=== PATIENT | female | born 1945 | race African-American/Black ===

== ENCOUNTER 2018-06-25 17:58 | Inpatient (IN) | payer MEDICARE, OTHER ==
[2018-06-25] MEDS ORDERED: Haloperidol Lactate 5 mg/mL 1mL Vial IM STA (18:30)
[2018-06-25] MEDS ORDERED: Haloperidol Lactate 5 mg/mL 1mL Vial ONE (18:40)
--- NOTE | 2018-06-25 19:33 | ED Physician Chart ---
ED Chief Complaint/HPI - Patient Information Date Seen:: 06/25/18 Time Seen:: 18:30 Chief Complaint:: Hallucinations History of Present Illness:: onset x 3 days of hallucinations; no report of trauma, H/As, SIs, neck pain, C/P , SOB, Abd. Pain, or urinary s/s Allergies:: Allergies Allergy/AdvReac Type Severity Reaction Status Date / Time No Known Allergies Allergy Verified 06/25/18 18:30 Vitals:: Vital Signs - 8 hr 06/25/18 06/25/18 18:30 19:00 Temp 98.5 F 98.4 F HR 72 76 RR 16 16 BP 157/87 120/54 O2 Sat % 100 100 Historian:: Patient, EMS Review:: Nurse's Note Reviewed, Old Chart Reviewed, EMS run form Reviewed ED Review of Systems - Review of Systems General/Constitutional: No fever, No chills, No weight loss, No weakness, No diaphoresis, No edema, No loss of appetite Skin: No skin lesions, No rash, No bruising Head: No headache, No light-headedness Eyes: No loss of vision, No pain, No diplopia ENT: No earache, No nasal drainage, No sore throat, No tinnitus Neck: No neck pain, No swelling, No thyromegaly, No stiffness, No mass noted Cardio Vascular: No chest pain, No palpitations, No PND, No orthopnea, No edema Pulmonary: No SOB, No cough, No sputum, No wheezing GI: No nausea, No vomiting, No diarrhea, No pain, No melena, No hematochezia, No constipation, No hematemesis G/U: No dysuria, No frequency, No hematuria, No nacturia Ways Operator: No vaginal discharge, No abnormal vaginal bleed, No contraction Musculoskeletal: No bone or joint pain, No back pain, No muscle pain Endocrine: No polyuria, No polydipsia Psychiatric: Prior psych history, No depression, Anxiety, No suicidal ideation, No homicidal ideation, Auditory hallucination, Visual hallucination Hematopoietic: No bruising, No lymphadenopathy Allergic/Immuno: No urticaria, No angioedema Neurological: No syncope, No focal symptoms, No weakness, No paresthesia, No headache, No seizure, No dizziness, No confusion, No vertigo ED Past Medical History - Past Medical History Obtainable: Yes Past Medical History: HTN, DVT/PE, Dyslipidemia Family History: HTN Social History: Non Smoker, No Alcohol, No Drug Use, Single, Care Facility Surgical History: None Psychiatricy History: Schizophrenia, Bipolar Medication: Reviewed Family Medical History - Family Member Mother History Unknown: Yes ED Physical Exam - Physical Examination General/Constitutional: Awake, Well-developed, well-nourished, Alert, No distress, GCS 15, Non-toxic appearing, Ambulatory Head: Atraumatic Eyes: Lids, conjuctiva normal, PERRL, EOMI Skin: Nl inspection, No rash, No skin lesions, No ecchymosis, Well hydrated, No lymphadenopathy ENMT: External ears, nose nl, TM canals nl, Nasal exam nl, Lips, teeth, gums nl , Oropharynx nl, Tonsils nl Neck: Nontender, Full ROM w/o pain, No JVD, No nuchal rigidity, No bruit, No mass, No stridor Respiratory: Nl effort/Exclusion, Clear to Auscultation, No Wheeze/Rhonchi/Rales Cardio Vascular: RRR, No murmur, gallop, rubs, NL S1 S2, Carotid/Femoral/Distal pulses equal bilaterally GI: No tenderness/rebounding/guarding, No organomegaly, No hernia, Normal BS's, Nondistended, No mass/bruits, No McBurney tenderness : No CVA tenderness Extremities: No tenderness or effusion, Full ROM, normal strength in all extremities, No edema, Normal digits & nails Neuro/Psych: Alert/oriented, DTR's symmetric, Normal sensory exam, Normal motor strength, Judgement/insight normal, Mood normal, Normal gait, No focal deficits Other Neuro/Psych comments:: + Hallucinations; no SIs; Mood/Affect: Labile Misc: Normal back, No paraspinal tenderness ED Labs/Radiology/EKG Results - Lab Results Comments:: Reviewed - EKG Interpretations EKG Time:: 19:31 Rate & Rhythm: 66; NSR Comments:: non-specific st-t changes ED Septic Shock - . Is Septic Shock (SBP<90, OR Lactate>4 mmol\L) present?: No - <6hrs of presentation: Vital Signs: Vital Signs - 8 hr 06/25/18 06/25/18 18:30 19:00 Temp 98.5 F 98.4 F HR 72 76 RR 16 16 BP 157/87 120/54 O2 Sat % 100 100 ED Reassessment (Disposition) - Reassessment Reassessment Condition:: Improved - Diagnosis Diagnosis:: Hallucinations; Medical Clearance; Psychosis; Schizophrenia; Bipolar Disorder
[2018-06-25 19:46] LABS: HEMATOCRIT 35.7 % (41.0-60); HEMOGLOBIN 11.8 gm/dL (12-16); MEAN CELL VOLUME 82.3 fl (81-100); MEAN CORPUSCULAR HEMOGLOBIN 27.1 pg (27.0-31.0); MEAN PLATELET VOLUME 7.9 fl; PLATELET COUNT 166 Th/cmm (150-400); RED BLOOD COUNT 4.34 Mil/cmm (3.80-5.20); RED CELL DISTRIBUTION WIDTH 13.5 % (11.5-20.0)
[2018-06-25 19:48] LABS: WHITE BLOOD COUNT 3.1 Th/cmm (4.8-10.8)
[2018-06-25 19:51] LABS: ACETAMINOPHEN < 10.0 ug/mL (10.0-30.0); ALB/GLOB RATIO 1.6 (1.0-1.8); ALBUMIN 4.5 gm/dL (3.7-5.3); ALKALINE PHOSPHATASE 40 U/L (34-104); ANION GAP 15.4 (7.0-16.0); BILIRUBIN,TOTAL 0.4 mg/dL (0.3-1.0); BUN - UREA NITROGEN 41 mg/dL (7-25); CALCIUM SERUM 9.9 mg/dL (8.6-10.3); CARBON DIOXIDE 22.8 mEq/L (21.0-31.0); CHLORIDE 106 mEq/L (98-107); CHOLESTEROL 205 mg/dL (<200); CREATININE - SERUM 1.1 mg/dL (0.6-1.2); GLUCOSE 114 mg/dL (70-105); HDL -HIGH DENSITY LIPOPROTEIN 98 mg/dL (23-92); POTASSIUM SERUM 4.2 mEq/L (3.5-5.1); SGOT 17 U/L (13-39); SGPT/ALT 11 U/L (7-52); SODIUM SERUM 140 mEq/L (136-145); TOTAL PROTEIN,SERUM 7.3 gm/dL (6.0-8.3); TRIGLYCERIDES 42 mg/dL (<150)
[2018-06-25 19:53] LABS: SALICYLATES (ASPIRIN) < 25.0 mg/L (30.0-100.0)
[2018-06-25 20:20] LABS: NEUTROPHILS 58 % (40-80)
[2018-06-25 20:21] LABS: LYMPHOCYTE 34 % (20-50); MONOCYTE 8 % (2-10)
[2018-06-25 21:57] VITALS: BP 120/54
[2018-06-25] MEDS ORDERED: Magnesium Hydroxide (MOM) 30 mL UDC PO PRN (22:08)
[2018-06-25] MEDS ORDERED: Non-Formulary Item 1 EA (Melatonin [Melatonin] 3 MG) PO PRN (22:08)
[2018-06-25 22:26] LABS: CHOLESTEROL 209 mg/dL (<200); HDL -HIGH DENSITY LIPOPROTEIN 101 mg/dL (23-92); TRIGLYCERIDES 41 mg/dL (<150)
--- NOTE | 2018-06-26 12:51 | History & Physical ---
ADMIT DATE: 06/26/2018 CHIEF COMPLAINT: Agitated behavior. HISTORY OF PRESENT ILLNESS: This is a 73-year-old -Y[place]i female with history of hypertension, psych disorder, dementia, admitted from nursing facility secondary to above complaint, under the service of Dr. Roy. The patient denies chest pain, shortness of breath. The patient is a poor historian. PAST MEDICAL HISTORY: As mentioned in the history of present illness. PAST SURGICAL HISTORY: Right knee replacement. ALLERGIES: No known drug allergies. MEDICATIONS: Tylenol, Eliquis, atenolol, bisacodyl, lisinopril, magnesium, melatonin, and olanzapine. FAMILY HISTORY: Noncontributory. SOCIAL HISTORY: The patient lives in snf. The patient requiring 24-hour total care apparently. REVIEW OF SYSTEMS: History of DVT. We will try to get information from the patient's Son [phone]. There is a brother Andrea Guzman, . We will also try to get information from rehab at . PHYSICAL EXAMINATION: VITAL SIGNS: Blood pressure 151/70, respirations 18, pulse 76, temperature 97.8. GENERAL: Elderly female, appears stated age, chronically ill. NECK: Supple. No mass. LUNGS: Equal breath sounds, few rhonchi. HEART: Regular rate and rhythm. Systolic ejection murmur. ABDOMEN: Soft, globular. EXTREMITIES: Positive excoriation, atrophy, contractures. LABORATORY DATA: WBC 3.1, hemoglobin 11, platelets 166. Sodium 140, potassium 4.2, BUN 41, creatinine 1.1, blood sugar 114. Troponin 0.01. Cholesterol 219. TSH 1.9. ASSESSMENT AND PLAN: Anemia, leukopenia, renal insufficiency, elevated cholesterol, gait instability, hypertension, psych disorder, dementia, history of deep venous thrombosis. Continue oxygen and bronchodilator treatment. Continue on anticoagulation. Continue calcium channel titus. We will monitor renal function closely. Psychiatry to manage the patient for psych issues. We will continue to follow closely. JOB# [id number]
--- NOTE | 2018-06-27 12:12 | Internal Medicine Prog Note ---
Internal Medicine Subjective - Subjective Patient seen and examined:: with staff, chart reviewed Patient is:: awake, verbal, interactive, in bed Per staff patient has:: no adverse event, no episodes of fall, poor appetite, tolerating meds Internal Medicine Objective - Results Result Diagrams: 06/25/18 19:15 06/25/18 19:15 Recent Labs: Laboratory Last Values WBC 3.1 Th/cmm (4.8-10.8) L 06/25/18 19:15 RBC 4.34 Mil/cmm (3.80-5.20) 06/25/18 19:15 Hgb 11.8 gm/dL (12-16) L 06/25/18 19:15 Hct 35.7 % (41.0-60) L 06/25/18 19:15 MCV 82.3 fl (81-100) 06/25/18 19:15 MCH 27.1 pg (27.0-31.0) 06/25/18 19:15 MCHC Differential 33.0 pg (28.0-36.0) 06/25/18 19:15 RDW 13.5 % (11.5-20.0) 06/25/18 19:15 Plt Count 166 Th/cmm (150-400) 06/25/18 19:15 MPV 7.9 fl 06/25/18 19:15 Add Manual Diff YES 06/25/18 19:15 Neutrophils (Manual) 58 % (40-80) 06/25/18 19:15 Lymphocytes 34 % (20-50) 06/25/18 19:15 Monocytes 8 % (2-10) 06/25/18 19:15 Sodium 140 mEq/L (136-145) 06/25/18 19:15 Potassium 4.2 mEq/L (3.5-5.1) 06/25/18 19:15 Chloride 106 mEq/L (98-107) 06/25/18 19:15 Carbon Dioxide 22.8 mEq/L (21.0-31.0) 06/25/18 19:15 Anion Gap 15.4 (7.0-16.0) 06/25/18 19:15 BUN 41 mg/dL (7-25) H 06/25/18 19:15 Creatinine 1.1 mg/dL (0.6-1.2) 06/25/18 19:15 Est GFR ( Amer) TNP 06/25/18 19:15 Est GFR (Non-Af Amer) TNP 06/25/18 19:15 BUN/Creatinine Ratio 37.3 06/25/18 19:15 Glucose 114 mg/dL (70-105) H 06/25/18 19:15 Whole Bld Lactic Acid 1.15 mmol/L (0.60-1.99) 06/25/18 19:15 Calcium 9.9 mg/dL (8.6-10.3) 06/25/18 19:15 Total Bilirubin 0.4 mg/dL (0.3-1.0) 06/25/18 19:15 AST 17 U/L (13-39) 06/25/18 19:15 ALT 11 U/L (7-52) 06/25/18 19:15 Alkaline Phosphatase 40 U/L (34-104) 06/25/18 19:15 Troponin I < 0.01 ng/mL (0.01-0.05) L 06/25/18 19:15 Total Protein 7.3 gm/dL (6.0-8.3) 06/25/18 19:15 Albumin 4.5 gm/dL (3.7-5.3) 06/25/18 19:15 Globulin 2.8 gm/dL 06/25/18 19:15 Albumin/Globulin Ratio 1.6 (1.0-1.8) 06/25/18 19:15 Triglycerides 41 mg/dL (<150) 06/25/18 19:15 Cholesterol 209 mg/dL (<200) H 06/25/18 19:15 LDL Cholesterol Direct 80 mg/dL (75-193) 06/25/18 19:15 HDL Cholesterol 101 mg/dL (23-92) H 06/25/18 19:15 TSH 1.98 uIU/ml (0.34-5.60) 06/25/18 19:15 Salicylates < 25.0 mg/L (30.0-100.0) L 06/25/18 19:15 Acetaminophen < 10.0 ug/mL (10.0-30.0) L 06/25/18 19:15 Ethyl Alcohol < 10 mg/dL (0-10) 06/25/18 19:15 - Physical Exam Vitals and I&O: Vital Signs Temp 97.7 F 06/27/18 05:44 Pulse 62 06/27/18 08:44 Resp 18 06/27/18 05:44 BP 134/64 06/27/18 08:44 Pulse Ox 100 06/27/18 05:44 Intake & Output 06/26/18 06/27/18 06/27/18 18:59 06:59 18:59 Intake Total 1400 120 Balance 1400 120 Intake: Oral 1400 120 Other: # Voids 4 2 # Bowel Movements 1 0 Active Medications: Current Medications Acetaminophen (Tylenol) 650 mg PO Q6H PRN PRN Reason: Pain (Mild) Stop: 08/24/18 22:48 Atenolol (Tenormin) 50 mg PO DAILY SRIKANTH Stop: 08/25/18 08:59 Last Admin: 06/27/18 08:43 Dose: 50 mg Bisacodyl (Dulcolax 10 Mg Supp) 10 mg RC DAILY PRN PRN Reason: Constipation Stop: 08/24/18 22:07 Lisinopril (Zestril) 40 mg PO DAILY SRIKANTH Stop: 08/25/18 08:59 Last Admin: 06/27/18 08:44 Dose: 40 mg Lorazepam (Ativan) 0.5 mg PO Q6HR PRN; Protocol PRN Reason: Agitation Stop: 08/24/18 23:02 Magnesium Hydroxide (Milk Of Magnesia) 30 ml PO DAILY PRN PRN Reason: Constipation Stop: 08/24/18 22:07 Miscellaneous (Misc Oral Tab) 2 tab PO BID SRIKANTH Stop: 08/25/18 08:59 Last Admin: 06/27/18 08:43 Dose: 2 tab Olanzapine (Zyprexa) 2.5 mg PO HS SRIKANTH; Protocol Stop: 08/25/18 20:59 Last Admin: 06/26/18 21:13 Dose: 2.5 mg Zolpidem Tartrate (Ambien) 5 mg PO HS PRN PRN Reason: Insomnia Stop: 08/24/18 23:05 General: demented, bilateral temporal wasting HEENT: NC/AT, PERRLA, EOMI Neck: Supple, No JVD Lungs: CTAB Cardiovascular: RRR, Normal S1, Normal S2, with murmur Abdomen: soft, non-tender, positive bowel sound Extremities: excoriation, contracture Neurological: no change Internal Medicine Assmt/Plan - Assessment Assessment: ASSESSMENT AND PLAN: Anemia, leukopenia, renal insufficiency, elevated cholesterol, gait instability, hypertension, psych disorder, dementia, history of deep venous thrombosis. - Plan Plan: APLAN: Continue oxygen and bronchodilator treatment. Continue on anticoagulation. Continue calcium channel titus. We will monitor renal function closely. Psychiatry to manage the patient for psych issues. We will continue to follow closely.
--- NOTE | 2018-06-27 12:43 | Psychiatric Evaluation ---
DATE OF SERVICE: 06/26/2018 IDENTIFYING DATA: The patient is a 73-year-old -Serbian woman, resident of a [facility] facility i.e., [facility]. Information obtained by directly interviewing the patient as well as reviewing the admission papers. JUSTIFICATION FOR HOSPITALIZATION: The patient is admitted for her acute psychosis and agitation. CHIEF COMPLAINT: "They are tricking me and they are trying to get me out of my house." HISTORY OF PRESENT ILLNESS: This is a first psychiatric hospitalization to [facility] for this patient who is reported to have multiple medical problems such as hypertension, generalized muscle weakness, rhabdomyolysis, history of metabolic encephalopathy, anemia, and chronic kidney disease. The patient is reporting that she is supposed to go back to her place because her place is in ____ and they have gotten her to [facility]. From there, she has been promised that she is going to be going back to her house, but now she is sent over here. The patient is very agitated and is demanding that I should be discharging her back to her home. PAST PSYCHIATRIC HISTORY: Details are not known. MEDICAL HISTORY: Physical examination is requested to be done by Dr. Jaime. SUBSTANCE ABUSE HISTORY: None. PHYSICAL OR SEXUAL ABUSE HISTORY: None. LEGAL PROBLEMS: None at this time. STRENGTH AND ASSETS: The patient is motivated. MENTAL STATUS EXAMINATION: The patient is a 73-year-old thin built, superficially cooperative. Eye contact is poor. Mood is noted to be irritable. Affect is constricted. Insight and judgment are very much impaired. Impulse control is poor. The patient is getting easily agitated. The patient is stating that she should be discharged back to her place and she should not be in here. Coping skills are noted to be extremely poor at this time. The patient has both short-term as well as long-term memory deficits. The patient is not able to contract for safety at this time. DIAGNOSTIC IMPRESSION: AXIS I: A. Psychotic disorder, not otherwise specified. B. 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 AXIS II: None. AXIS III: As per Dr. Jaime. IMMEDIATE TREATMENT PLAN: The patient is going to be observed on inpatient unit, provided with supportive psychotherapy. The patient is going to be continued on the Zyprexa. ANTICIPATED LENGTH OF STAY: 3-5 days. DISCHARGE CRITERIA: When she no longer a threat to self or others and be able to cope up with the stress. JOB# [id number]
--- NOTE | 2018-06-28 03:25 | Progress Notes ---
DATE: 06/27/2018 SUBJECTIVE: Staff was spoken to. The patient is interviewed. Mood is noted to be irritable. Affect is constricted. Insight and judgment are noted to be still impaired. Impulse control is noted to be limited. Coping skills are noted to be limited. The patient has been having difficult time to cope with the stress. No side effects to the medications are noted. The patient, however, has been angry and upset and states that she is going to be seeing the facility for tricking her and then bringing her over here. The patient continues to be paranoid. The patient has been currently on 2.5 mg of Zyprexa and would like to continue that one and follow the patient with the supportive therapy. [facility]# [id number]
--- NOTE | 2018-06-28 05:19 | Consultation ---
DATE OF CONSULTATION: 06/27/2018 REFERRING PHYSICIAN: Jamey Brink MD TYPE OF CONSULTATION: Psychology. HISTORY OF PRESENT ILLNESS: The patient is a 73-year-old -[place] female. The patient is a resident of [facility]. The following is by review of the medical record and by the patient's self-report. The patient is being admitted to the geropsychiatric unit for psychosis and agitation. Upon interview, the patient reports that she believes that people are trying to trick her to get her out of her home. The patient denied any suicidal ideation, plan, or intention. The staff at the patient's facility reports that she has become easily agitated and demanding as well as perseverating on discharge to return to her home. During the clinical interview, the patient continued to request to be taken home and that everyone had promised her that she would be going back to her house. PAST MEDICAL HISTORY: Please see history and physical by Dr. Jaime. PAST PSYCHIATRIC HISTORY: Records are unavailable. Details are unknown. SUBSTANCE ABUSE HISTORY: The patient denied any history of alcohol, tobacco, or illicit drug use. PSYCHOSOCIAL HISTORY: The patient did not answer questions about occupational or educational history. The patient states that she has no children, but she has a family member named Zander who is involved in her care. The patient states no quaker affiliation. The patient did not answer questions about any history of physical or sexual abuse or current legal problems. The patient is demanding to be returned to her home. The patient is a poor historian. MENTAL STATUS EXAMINATION: The patient appears to be her stated age; however, she is frail. Attitude is superficially cooperative. Eye contact is poor. Speech is delayed and intermittently loud then soft. The patient's mood is irritable. Affect is constricted. Thought process shows to be confused. There is some evidence of possible paranoid ideation. The patient denied any auditory or visual hallucinations. The patient denied any suicidal ideation, plan, or intention. The patient's behavior is easily agitated according to the staff. Impulse control is inadequate. Concentration is poor. The patient did not participate in the memory assessment. Sensorium is alert and oriented to self only. The patient did not participate in the interpretation of proverbs. Insight is poor. Judgment is compromised. DIAGNOSTIC IMPRESSION: AXIS I: 1. Psychotic disorder, not otherwise specified. 2. Dementia with behavioral disturbance. AXIS II: Deferred. AXIS III: Per Dr. Jaime. TREATMENT PLAN: The patient has been seen by Dr. Brink for psychiatric evaluation and for the management of the patient's psychotropic medications. We will provide supportive psychotherapy to include reality orientation, differentiation, and integration. We will provide de-escalation as well as stress management for the patient to increase her frustration tolerance and to be able to follow through with staff direction. We will provide motivational enhancement for the patient to become compliant and to stay compliant with all aspects of her care and treatment. We will provide coping strategies for phase of life issues. We will continue to provide supportive psychotherapy throughout the patient's hospital stay. We will encourage the patient to demonstrate emotional and self-regulation and to verbally contract for safety prior to her discharge. Thank you, Dr. Brink, for this consult and the opportunity to participate in this patient's care. JOB# [id number] MTDD
--- NOTE | 2018-06-28 14:33 | Internal Medicine Prog Note ---
Internal Medicine Subjective - Subjective Service Date: 06/28/18 Patient is:: awake, verbal, interactive, in bed Per staff patient has:: no adverse event, no episodes of fall, poor appetite, tolerating meds Internal Medicine Objective - Results Result Diagrams: 06/25/18 19:15 06/25/18 19:15 Recent Labs: Laboratory Last Values WBC 3.1 Th/cmm (4.8-10.8) L 06/25/18 19:15 RBC 4.34 Mil/cmm (3.80-5.20) 06/25/18 19:15 Hgb 11.8 gm/dL (12-16) L 06/25/18 19:15 Hct 35.7 % (41.0-60) L 06/25/18 19:15 MCV 82.3 fl (81-100) 06/25/18 19:15 MCH 27.1 pg (27.0-31.0) 06/25/18 19:15 MCHC Differential 33.0 pg (28.0-36.0) 06/25/18 19:15 RDW 13.5 % (11.5-20.0) 06/25/18 19:15 Plt Count 166 Th/cmm (150-400) 06/25/18 19:15 MPV 7.9 fl 06/25/18 19:15 Add Manual Diff YES 06/25/18 19:15 Neutrophils (Manual) 58 % (40-80) 06/25/18 19:15 Lymphocytes 34 % (20-50) 06/25/18 19:15 Monocytes 8 % (2-10) 06/25/18 19:15 Sodium 140 mEq/L (136-145) 06/25/18 19:15 Potassium 4.2 mEq/L (3.5-5.1) 06/25/18 19:15 Chloride 106 mEq/L (98-107) 06/25/18 19:15 Carbon Dioxide 22.8 mEq/L (21.0-31.0) 06/25/18 19:15 Anion Gap 15.4 (7.0-16.0) 06/25/18 19:15 BUN 41 mg/dL (7-25) H 06/25/18 19:15 Creatinine 1.1 mg/dL (0.6-1.2) 06/25/18 19:15 Est GFR ( Amer) TNP 06/25/18 19:15 Est GFR (Non-Af Amer) TNP 06/25/18 19:15 BUN/Creatinine Ratio 37.3 06/25/18 19:15 Glucose 114 mg/dL (70-105) H 06/25/18 19:15 Whole Bld Lactic Acid 1.15 mmol/L (0.60-1.99) 06/25/18 19:15 Calcium 9.9 mg/dL (8.6-10.3) 06/25/18 19:15 Total Bilirubin 0.4 mg/dL (0.3-1.0) 06/25/18 19:15 AST 17 U/L (13-39) 06/25/18 19:15 ALT 11 U/L (7-52) 06/25/18 19:15 Alkaline Phosphatase 40 U/L (34-104) 06/25/18 19:15 Troponin I < 0.01 ng/mL (0.01-0.05) L 06/25/18 19:15 Total Protein 7.3 gm/dL (6.0-8.3) 06/25/18 19:15 Albumin 4.5 gm/dL (3.7-5.3) 06/25/18 19:15 Globulin 2.8 gm/dL 06/25/18 19:15 Albumin/Globulin Ratio 1.6 (1.0-1.8) 06/25/18 19:15 Triglycerides 41 mg/dL (<150) 06/25/18 19:15 Cholesterol 209 mg/dL (<200) H 06/25/18 19:15 LDL Cholesterol Direct 80 mg/dL (75-193) 06/25/18 19:15 HDL Cholesterol 101 mg/dL (23-92) H 06/25/18 19:15 TSH 1.98 uIU/ml (0.34-5.60) 06/25/18 19:15 Salicylates < 25.0 mg/L (30.0-100.0) L 06/25/18 19:15 Acetaminophen < 10.0 ug/mL (10.0-30.0) L 06/25/18 19:15 Ethyl Alcohol < 10 mg/dL (0-10) 06/25/18 19:15 RPR NONREACTIVE (NONREACTIVE) 06/25/18 19:15 - Physical Exam Vitals and I&O: Vital Signs Temp 97.9 F 06/28/18 14:00 Pulse 69 06/28/18 14:00 Resp 20 06/28/18 14:00 BP 124/76 06/28/18 14:00 Pulse Ox 96 06/28/18 14:00 Intake & Output 06/27/18 06/28/18 06/28/18 18:59 06:59 18:59 Intake Total 1000 240 Balance 1000 240 Intake: Oral 1000 240 Other: # Voids 4 2 # Bowel Movements 1 0 Active Medications: Current Medications Acetaminophen (Tylenol) 650 mg PO Q6H PRN PRN Reason: Pain (Mild) Stop: 08/24/18 22:48 Atenolol (Tenormin) 50 mg PO DAILY SRIKANTH Stop: 08/25/18 08:59 Last Admin: 06/28/18 09:02 Dose: 50 mg Bisacodyl (Dulcolax 10 Mg Supp) 10 mg RC DAILY PRN PRN Reason: Constipation Stop: 08/24/18 22:07 Lisinopril (Zestril) 40 mg PO DAILY SRIKANTH Stop: 08/25/18 08:59 Last Admin: 06/28/18 09:01 Dose: 40 mg Lorazepam (Ativan) 0.5 mg PO Q6HR PRN; Protocol PRN Reason: Agitation Stop: 08/24/18 23:02 Magnesium Hydroxide (Milk Of Magnesia) 30 ml PO DAILY PRN PRN Reason: Constipation Stop: 08/24/18 22:07 Miscellaneous (Misc Oral Tab) 2 tab PO BID SRIKANTH Stop: 08/25/18 08:59 Last Admin: 06/28/18 09:01 Dose: 2 tab Olanzapine (Zyprexa) 2.5 mg PO HS SRIKANTH; Protocol Stop: 08/25/18 20:59 Last Admin: 06/27/18 21:02 Dose: 2.5 mg Zolpidem Tartrate (Ambien) 5 mg PO HS PRN PRN Reason: Insomnia Stop: 08/24/18 23:05 General: demented, bilateral temporal wasting HEENT: NC/AT, PERRLA, EOMI Neck: Supple, No JVD Lungs: CTAB Cardiovascular: RRR, Normal S1, Normal S2, with murmur Abdomen: soft, non-tender, positive bowel sound Extremities: excoriation, contracture Neurological: no change Internal Medicine Assmt/Plan - Assessment Assessment: ASSESSMENT AND PLAN: Anemia, leukopenia, renal insufficiency, elevated cholesterol, gait instability, hypertension, psych disorder, dementia, history of deep venous thrombosis. - Plan Plan: Continue oxygen and bronchodilator treatment. Continue on anticoagulation. Continue calcium channel titus. We will monitor renal function closely. Psychiatry to manage the patient for psych issues. We will continue to follow closely. Nutritional Asmnt/Malnutr-PDOC - Dietary Evaluation Malnutrition Findings (Please click <Entered> for more info): Nutritional Asmnt/Malnutrition Start: 06/28/18 09: 40 Text: Status: Active Freq: Protocol: Document 06/28/18 09:40 MMDONY (Rec: 06/28/18 09:46 MMULNELSON BRANDON- [email or web address]) Nutritional Asmnt/Malnutrition Patient General Information Nutritional Screening Moderate Risk Diagnosis Psychosis, bipolar disorder Pertinent Medical Hx/Surgical Hx Hypertension, psych disorder, dementia Subjective Information Patient was admitted from nursing facility. Current Diet Order/ Nutrition Support Mechanical soft Patient / S.O Not Indicated Pertinent Medications dulcolax, MOM Pertinent Labs (06/25) cholesterol 209 Nutritional Hx/Data Height 5 ft 2 in Height (Calculated Centimeters) 157.5 Current Weight (lbs) 132 lb Weight (Calculated Kilograms) 59.9 Weight (Calculated Grams) 63980.2 [place] Body Weight 110 % [place] Body Weight 120 Body Mass Index (BMI) 24.1 Recent Weight Change No Weight Status Approriate GI Symptoms GI Symptoms None Last BM 06/27 x 1 Difficult in: None Food Allergies No Cultural/Ethnic/Protestant Belief none indicated Usual diet at home unknown Skin Integrity/Comment: [place] 17, intact, dryness Current %PO Good (75-100%) Estimated Nutritional Goals BEE in Kcals: Using Current wt Calories/Kcals/Kg 25-30 kcal/kg using CBW 60kg Kcals Calculated 8184-4466 kcal/day Protein: Using Current wt Protein g/kgm/kg Protein Calculated ~60gm/day Fluid: ml 7544-4599 ml/day Nutritional Problem 1. Problem Problem No nutrition diagnosis at this time Intervention/Recommendation Comments 1. Continue mechanical soft diet as tolerated by patient. Expected Outcomes/Goals Expected Outcomes/Goals Oral intake >75% of meals, weight stable, nutrition related labs WNl F/U LR 07/05
--- NOTE | 2018-06-28 19:08 | Progress Notes ---
DATE: 06/28/2018 PSYCHIATRIC PROGRESS NOTE SUBJECTIVE: Staff was spoken to. The patient is interviewed. Mood is noted to be irritable. Affect is constricted. The patient's coping skills at this time are noted to be very poor insight and judgment also noted to be very much impaired. The patient has been insisting that there is a conspiracy going on for keeping her in the hospital. The patient has no insight into her illness. ASSESSMENT: The patient is still grossly psychotic. PLAN: To continue the patient with the supportive therapy, I encouraged the patient to verbalize the concerns rather than to act out. JOB# [id number]
--- NOTE | 2018-06-29 13:15 | Internal Medicine Prog Note ---
Internal Medicine Subjective - Subjective Service Date: 06/29/18 Patient is:: awake, verbal, interactive, in bed Per staff patient has:: no adverse event, no episodes of fall, poor appetite, tolerating meds Internal Medicine Objective - Results Result Diagrams: 06/25/18 19:15 06/25/18 19:15 Recent Labs: Laboratory Last Values WBC 3.1 Th/cmm (4.8-10.8) L 06/25/18 19:15 RBC 4.34 Mil/cmm (3.80-5.20) 06/25/18 19:15 Hgb 11.8 gm/dL (12-16) L 06/25/18 19:15 Hct 35.7 % (41.0-60) L 06/25/18 19:15 MCV 82.3 fl (81-100) 06/25/18 19:15 MCH 27.1 pg (27.0-31.0) 06/25/18 19:15 MCHC Differential 33.0 pg (28.0-36.0) 06/25/18 19:15 RDW 13.5 % (11.5-20.0) 06/25/18 19:15 Plt Count 166 Th/cmm (150-400) 06/25/18 19:15 MPV 7.9 fl 06/25/18 19:15 Add Manual Diff YES 06/25/18 19:15 Neutrophils (Manual) 58 % (40-80) 06/25/18 19:15 Lymphocytes 34 % (20-50) 06/25/18 19:15 Monocytes 8 % (2-10) 06/25/18 19:15 Sodium 140 mEq/L (136-145) 06/25/18 19:15 Potassium 4.2 mEq/L (3.5-5.1) 06/25/18 19:15 Chloride 106 mEq/L (98-107) 06/25/18 19:15 Carbon Dioxide 22.8 mEq/L (21.0-31.0) 06/25/18 19:15 Anion Gap 15.4 (7.0-16.0) 06/25/18 19:15 BUN 41 mg/dL (7-25) H 06/25/18 19:15 Creatinine 1.1 mg/dL (0.6-1.2) 06/25/18 19:15 Est GFR ( Amer) TNP 06/25/18 19:15 Est GFR (Non-Af Amer) TNP 06/25/18 19:15 BUN/Creatinine Ratio 37.3 06/25/18 19:15 Glucose 114 mg/dL (70-105) H 06/25/18 19:15 Whole Bld Lactic Acid 1.15 mmol/L (0.60-1.99) 06/25/18 19:15 Calcium 9.9 mg/dL (8.6-10.3) 06/25/18 19:15 Total Bilirubin 0.4 mg/dL (0.3-1.0) 06/25/18 19:15 AST 17 U/L (13-39) 06/25/18 19:15 ALT 11 U/L (7-52) 06/25/18 19:15 Alkaline Phosphatase 40 U/L (34-104) 06/25/18 19:15 Troponin I < 0.01 ng/mL (0.01-0.05) L 06/25/18 19:15 Total Protein 7.3 gm/dL (6.0-8.3) 06/25/18 19:15 Albumin 4.5 gm/dL (3.7-5.3) 06/25/18 19:15 Globulin 2.8 gm/dL 06/25/18 19:15 Albumin/Globulin Ratio 1.6 (1.0-1.8) 06/25/18 19:15 Triglycerides 41 mg/dL (<150) 06/25/18 19:15 Cholesterol 209 mg/dL (<200) H 06/25/18 19:15 LDL Cholesterol Direct 80 mg/dL (75-193) 06/25/18 19:15 HDL Cholesterol 101 mg/dL (23-92) H 06/25/18 19:15 TSH 1.98 uIU/ml (0.34-5.60) 06/25/18 19:15 Salicylates < 25.0 mg/L (30.0-100.0) L 06/25/18 19:15 Acetaminophen < 10.0 ug/mL (10.0-30.0) L 06/25/18 19:15 Ethyl Alcohol < 10 mg/dL (0-10) 06/25/18 19:15 RPR NONREACTIVE (NONREACTIVE) 06/25/18 19:15 - Physical Exam Vitals and I&O: Vital Signs Temp 98.1 F 06/29/18 06:18 Pulse 62 06/29/18 08:15 Resp 20 06/29/18 06:18 BP 140/58 06/29/18 08:15 Pulse Ox 97 06/29/18 06:18 Intake & Output 06/28/18 06/29/18 06/29/18 18:59 06:59 18:59 Intake Total 1200 480 Output Total 1 Balance 1200 479 Intake: Oral 1200 480 Output: Urine/Stool Mix 1 Other: # Voids 1 # Bowel Movements 1 Active Medications: Current Medications Acetaminophen (Tylenol) 650 mg PO Q6H PRN PRN Reason: Pain (Mild) Stop: 08/24/18 22:48 Atenolol (Tenormin) 50 mg PO DAILY [facility]KANTH Stop: 08/25/18 08:59 Last Admin: 06/29/18 08:15 Dose: 50 mg Bisacodyl (Dulcolax 10 Mg Supp) 10 mg RC DAILY PRN PRN Reason: Constipation Stop: 08/24/18 22:07 Lisinopril (Zestril) 40 mg PO DAILY [facility] Stop: 08/25/18 08:59 Last Admin: 06/29/18 08:15 Dose: 40 mg Lorazepam (Ativan) 0.5 mg PO Q6HR PRN; Protocol PRN Reason: Agitation Stop: 08/24/18 23:02 Magnesium Hydroxide (Milk Of Magnesia) 30 ml PO DAILY PRN PRN Reason: Constipation Stop: 08/24/18 22:07 Miscellaneous (Misc Oral Tab) 2 tab PO BID [facility]AN[facility] Stop: 08/25/18 08:59 Last Admin: 06/29/18 08:16 Dose: 2 tab Olanzapine (Zyprexa) 2.5 mg PO HS SRIKANTH; Protocol Stop: 08/25/18 20:59 Last Admin: 06/28/18 20:20 Dose: 2.5 mg Zolpidem Tartrate (Ambien) 5 mg PO HS PRN PRN Reason: Insomnia Stop: 08/24/18 23:05 General: demented, bilateral temporal wasting HEENT: NC/AT, PERRLA, EOMI Neck: Supple, No JVD Lungs: CTAB Cardiovascular: RRR, Normal S1, Normal S2, with murmur Abdomen: soft, non-tender, positive bowel sound Extremities: excoriation, contracture Neurological: no change Internal Medicine Assmt/Plan - Assessment Assessment: ASSESSMENT AND PLAN: Anemia, leukopenia, renal insufficiency, elevated cholesterol, gait instability, hypertension, psych disorder, dementia, history of deep venous thrombosis. - Plan Plan: Continue oxygen and bronchodilator treatment. Continue on anticoagulation. Continue calcium channel titus. We will monitor renal function closely. Psychiatry to manage the patient for psych issues. We will continue to follow closely. Nutritional Asmnt/Malnutr-PDOC - Dietary Evaluation Malnutrition Findings (Please click <Entered> for more info): Nutritional Asmnt/Malnutrition Start: 06/28/18 09: 40 Text: Status: Complete Freq: Protocol: Document 06/28/18 09:40 MMULNELSON (Rec: 06/28/18 09:46 MMULHERValeriy BRANDON- FNS1) Nutritional Asmnt/Malnutrition Patient General Information Nutritional Screening Moderate Risk Diagnosis Psychosis, bipolar disorder Pertinent Medical Hx/Surgical Hx Hypertension, psych disorder, dementia Subjective Information Patient was admitted from nursing facility. Patient lying in bed at time of visit. Current Diet Order/ Nutrition Support Mechanical soft Patient / S.O Not Indicated Pertinent Medications dulcolax, MOM Pertinent Labs (06/25) cholesterol 209 Nutritional Hx/Data Height 5 ft 2 in Height (Calculated Centimeters) 157.5 Current Weight (lbs) 132 lb Weight (Calculated Kilograms) 59.9 Weight (Calculated Grams) 34193.2 [place] Body Weight 110 % [place] Body Weight 120 Body Mass Index (BMI) 24.1 Recent Weight Change No Weight Status Approriate GI Symptoms GI Symptoms None Last BM 06/27 x 1 Difficult in: None Food Allergies No Cultural/Ethnic/Yarsani Belief none indicated Usual diet at home unknown Skin Integrity/Comment: Castro 17, intact, dryness Current %PO Good (75-100%) Estimated Nutritional Goals BEE in Kcals: Using Current wt Calories/Kcals/Kg 25-30 kcal/kg using CBW 60kg Kcals Calculated 4607-0786 kcal/day Protein: Using Current wt Protein g/kgm/kg Protein Calculated ~60gm/day Fluid: ml 3927-8093 ml/day Nutritional Problem 1. Problem Problem No nutrition diagnosis at this time Intervention/Recommendation Comments 1. Continue mechanical soft diet as tolerated by patient. Expected Outcomes/Goals Expected Outcomes/Goals Oral intake >75% of meals, weight stable, nutrition related labs WNl F/U LR 07/05
--- NOTE | 2018-06-29 14:19 | Progress Notes ---
DATE: 06/29/2018 SUBJECTIVE: Staff was spoken to. The patient is interviewed. Mood is noted to be irritable. Affect is constricted. The patient is insisting that she should be discharged. Coping skills are noted to be extremely poor at this time. Insight and judgment are noted to be still impaired. No side effects to the medications are noted at this time. The patient has been having difficult time to cope with the stress. ASSESSMENT: The patient is still depressed and paranoid. PLAN: To continue the patient with the current medications and followup. JOB# [id number]
--- NOTE | 2018-06-30 11:44 | Internal Medicine Prog Note ---
Internal Medicine Subjective - Subjective Patient seen and examined:: with staff, chart reviewed Patient is:: awake, verbal, interactive, in bed Per staff patient has:: no adverse event, no episodes of fall, poor appetite, tolerating meds Internal Medicine Objective - Results Result Diagrams: 06/25/18 19:15 06/25/18 19:15 Recent Labs: Laboratory Last Values WBC 3.1 Th/cmm (4.8-10.8) L 06/25/18 19:15 RBC 4.34 Mil/cmm (3.80-5.20) 06/25/18 19:15 Hgb 11.8 gm/dL (12-16) L 06/25/18 19:15 Hct 35.7 % (41.0-60) L 06/25/18 19:15 MCV 82.3 fl (81-100) 06/25/18 19:15 MCH 27.1 pg (27.0-31.0) 06/25/18 19:15 MCHC Differential 33.0 pg (28.0-36.0) 06/25/18 19:15 RDW 13.5 % (11.5-20.0) 06/25/18 19:15 Plt Count 166 Th/cmm (150-400) 06/25/18 19:15 MPV 7.9 fl 06/25/18 19:15 Add Manual Diff YES 06/25/18 19:15 Neutrophils (Manual) 58 % (40-80) 06/25/18 19:15 Lymphocytes 34 % (20-50) 06/25/18 19:15 Monocytes 8 % (2-10) 06/25/18 19:15 Sodium 140 mEq/L (136-145) 06/25/18 19:15 Potassium 4.2 mEq/L (3.5-5.1) 06/25/18 19:15 Chloride 106 mEq/L (98-107) 06/25/18 19:15 Carbon Dioxide 22.8 mEq/L (21.0-31.0) 06/25/18 19:15 Anion Gap 15.4 (7.0-16.0) 06/25/18 19:15 BUN 41 mg/dL (7-25) H 06/25/18 19:15 Creatinine 1.1 mg/dL (0.6-1.2) 06/25/18 19:15 Est GFR ( Amer) TNP 06/25/18 19:15 Est GFR (Non-Af Amer) TNP 06/25/18 19:15 BUN/Creatinine Ratio 37.3 06/25/18 19:15 Glucose 114 mg/dL (70-105) H 06/25/18 19:15 Whole Bld Lactic Acid 1.15 mmol/L (0.60-1.99) 06/25/18 19:15 Calcium 9.9 mg/dL (8.6-10.3) 06/25/18 19:15 Total Bilirubin 0.4 mg/dL (0.3-1.0) 06/25/18 19:15 AST 17 U/L (13-39) 06/25/18 19:15 ALT 11 U/L (7-52) 06/25/18 19:15 Alkaline Phosphatase 40 U/L (34-104) 06/25/18 19:15 Troponin I < 0.01 ng/mL (0.01-0.05) L 06/25/18 19:15 Total Protein 7.3 gm/dL (6.0-8.3) 06/25/18 19:15 Albumin 4.5 gm/dL (3.7-5.3) 06/25/18 19:15 Globulin 2.8 gm/dL 06/25/18 19:15 Albumin/Globulin Ratio 1.6 (1.0-1.8) 06/25/18 19:15 Triglycerides 41 mg/dL (<150) 06/25/18 19:15 Cholesterol 209 mg/dL (<200) H 06/25/18 19:15 LDL Cholesterol Direct 80 mg/dL (75-193) 06/25/18 19:15 HDL Cholesterol 101 mg/dL (23-92) H 06/25/18 19:15 TSH 1.98 uIU/ml (0.34-5.60) 06/25/18 19:15 Salicylates < 25.0 mg/L (30.0-100.0) L 06/25/18 19:15 Acetaminophen < 10.0 ug/mL (10.0-30.0) L 06/25/18 19:15 Ethyl Alcohol < 10 mg/dL (0-10) 06/25/18 19:15 RPR NONREACTIVE (NONREACTIVE) 06/25/18 19:15 - Physical Exam Vitals and I&O: Vital Signs Temp 97.2 F 06/30/18 06:15 Pulse 62 06/30/18 09:31 Resp 18 06/30/18 06:15 BP 110/63 06/30/18 09:31 Pulse Ox 100 06/30/18 06:15 Intake & Output 06/29/18 06/30/18 06/30/18 18:59 06:59 18:59 Intake Total 950 300 Balance 950 300 Intake: Oral 950 300 Other: # Voids 4 1 # Bowel Movements 1 0 Active Medications: Current Medications Acetaminophen (Tylenol) 650 mg PO Q6H PRN PRN Reason: Pain (Mild) Stop: 08/24/18 22:48 Atenolol (Tenormin) 50 mg PO DAILY [facility] Stop: 08/25/18 08:59 Last Admin: 06/30/18 09:31 Dose: 50 mg Bisacodyl (Dulcolax 10 Mg Supp) 10 mg RC DAILY PRN PRN Reason: Constipation Stop: 08/24/18 22:07 Lisinopril (Zestril) 40 mg PO DAILY [facility]KAN[facility] Stop: 08/25/18 08:59 Last Admin: 06/30/18 09:31 Dose: 40 mg Lorazepam (Ativan) 0.5 mg PO Q6HR PRN; Protocol PRN Reason: Agitation Stop: 08/24/18 23:02 Magnesium Hydroxide (Milk Of Magnesia) 30 ml PO DAILY PRN PRN Reason: Constipation Stop: 08/24/18 22:07 Miscellaneous (Misc Oral Tab) 2 tab PO BID [facility]KAN[facility] Stop: 08/25/18 08:59 Last Admin: 06/30/18 09:30 Dose: 2 tab Olanzapine (Zyprexa) 2.5 mg PO HS SRIKANTH; Protocol Stop: 08/25/18 20:59 Last Admin: 06/29/18 20:45 Dose: 2.5 mg Zolpidem Tartrate (Ambien) 5 mg PO HS PRN PRN Reason: Insomnia Stop: 08/24/18 23:05 Last Admin: 06/29/18 20:45 Dose: 5 mg General: demented, bilateral temporal wasting HEENT: NC/AT, PERRLA, EOMI Neck: Supple, No JVD Lungs: CTAB Cardiovascular: RRR, Normal S1, Normal S2, with murmur Abdomen: soft, non-tender, positive bowel sound Extremities: excoriation, contracture Neurological: no change Internal Medicine Assmt/Plan - Assessment Assessment: ASSESSMENT AND PLAN: Anemia, leukopenia, renal insufficiency, elevated cholesterol, gait instability, hypertension, psych disorder, dementia, history of deep venous thrombosis. - Plan Plan: APLAN: Continue oxygen and bronchodilator treatment. Continue on anticoagulation. Continue calcium channel titus. We will monitor renal function closely. Psychiatry to manage the patient for psych issues. We will continue to follow closely. Nutritional Asmnt/Malnutr-PDOC - Dietary Evaluation Malnutrition Findings (Please click <Entered> for more info): Nutritional Asmnt/Malnutrition Start: 06/28/18 09: 40 Text: Status: Complete Freq: Protocol: Document 06/28/18 09:40 MMULNELSON (Rec: 06/28/18 09:46 MMULHERN ALEKSANDR- FNS1) Nutritional Asmnt/Malnutrition Patient General Information Nutritional Screening Moderate Risk Diagnosis Psychosis, bipolar disorder Pertinent Medical Hx/Surgical Hx Hypertension, psych disorder, dementia Subjective Information Patient was admitted from nursing facility. Patient lying in bed at time of visit. Current Diet Order/ Nutrition Support Mechanical soft Patient / S.O Not Indicated Pertinent Medications dulcolax, MOM Pertinent Labs (06/25) cholesterol 209 Nutritional Hx/Data Height 1.57 m Height (Calculated Centimeters) 157.5 Current Weight (lbs) 59.874 kg Weight (Calculated Kilograms) 59.9 Weight (Calculated Grams) 80236.2 [place] Body Weight 110 % [place] Body Weight 120 Body Mass Index (BMI) 24.1 Recent Weight Change No Weight Status Approriate GI Symptoms GI Symptoms None Last BM 06/27 x 1 Difficult in: None Food Allergies No Cultural/Ethnic/Alevism Belief none indicated Usual diet at home unknown Skin Integrity/Comment: [place] 17, intact, dryness Current %PO Good (75-100%) Estimated Nutritional Goals BEE in Kcals: Using Current wt Calories/Kcals/Kg 25-30 kcal/kg using CBW 60kg Kcals Calculated 5781-1203 kcal/day Protein: Using Current wt Protein g/kgm/kg Protein Calculated ~60gm/day Fluid: ml 7756-7506 ml/day Nutritional Problem 1. Problem Problem No nutrition diagnosis at this time Intervention/Recommendation Comments 1. Continue mechanical soft diet as tolerated by patient. Expected Outcomes/Goals Expected Outcomes/Goals Oral intake >75% of meals, weight stable, nutrition related labs WNl F/U LR 07/05
--- NOTE | 2018-07-01 03:31 | Progress Notes ---
DATE: 06/30/2018 SUBJECTIVE: Staff was spoken to. The patient is interviewed. Mood is irritable. Affect is constricted. The patient's insight and judgment are noted to be still impaired. Impulse control is noted to be poor. The patient is very paranoid and has been insisting that there is a conspiracy going on and she could not be in here, she needs to be discharged back to the facility. The patient has been able to tolerate the medications. No side effects to the medications are noted. ASSESSMENT: The patient is still grossly psychotic. PLAN: To increase the dose on the Zyprexa to 5 mg and follow the patient up with the supportive therapy. JOB# [id number]
[2018-07-01] MEDS: ELIQUIS 5 MG PO SCH ×2 (09:32→17:39)
--- NOTE | 2018-07-01 12:02 | Internal Medicine Prog Note ---
Internal Medicine Subjective - Subjective Patient seen and examined:: with staff, chart reviewed Patient is:: awake, verbal, interactive, in bed Per staff patient has:: no adverse event, no episodes of fall, poor appetite, tolerating meds Internal Medicine Objective - Results Result Diagrams: 06/25/18 19:15 06/25/18 19:15 Recent Labs: Laboratory Last Values WBC 3.1 Th/cmm (4.8-10.8) L 06/25/18 19:15 RBC 4.34 Mil/cmm (3.80-5.20) 06/25/18 19:15 Hgb 11.8 gm/dL (12-16) L 06/25/18 19:15 Hct 35.7 % (41.0-60) L 06/25/18 19:15 MCV 82.3 fl (81-100) 06/25/18 19:15 MCH 27.1 pg (27.0-31.0) 06/25/18 19:15 MCHC Differential 33.0 pg (28.0-36.0) 06/25/18 19:15 RDW 13.5 % (11.5-20.0) 06/25/18 19:15 Plt Count 166 Th/cmm (150-400) 06/25/18 19:15 MPV 7.9 fl 06/25/18 19:15 Add Manual Diff YES 06/25/18 19:15 Neutrophils (Manual) 58 % (40-80) 06/25/18 19:15 Lymphocytes 34 % (20-50) 06/25/18 19:15 Monocytes 8 % (2-10) 06/25/18 19:15 Sodium 140 mEq/L (136-145) 06/25/18 19:15 Potassium 4.2 mEq/L (3.5-5.1) 06/25/18 19:15 Chloride 106 mEq/L (98-107) 06/25/18 19:15 Carbon Dioxide 22.8 mEq/L (21.0-31.0) 06/25/18 19:15 Anion Gap 15.4 (7.0-16.0) 06/25/18 19:15 BUN 41 mg/dL (7-25) H 06/25/18 19:15 Creatinine 1.1 mg/dL (0.6-1.2) 06/25/18 19:15 Est GFR ( Amer) TNP 06/25/18 19:15 Est GFR (Non-Af Amer) TNP 06/25/18 19:15 BUN/Creatinine Ratio 37.3 06/25/18 19:15 Glucose 114 mg/dL (70-105) H 06/25/18 19:15 Whole Bld Lactic Acid 1.15 mmol/L (0.60-1.99) 06/25/18 19:15 Calcium 9.9 mg/dL (8.6-10.3) 06/25/18 19:15 Total Bilirubin 0.4 mg/dL (0.3-1.0) 06/25/18 19:15 AST 17 U/L (13-39) 06/25/18 19:15 ALT 11 U/L (7-52) 06/25/18 19:15 Alkaline Phosphatase 40 U/L (34-104) 06/25/18 19:15 Troponin I < 0.01 ng/mL (0.01-0.05) L 06/25/18 19:15 Total Protein 7.3 gm/dL (6.0-8.3) 06/25/18 19:15 Albumin 4.5 gm/dL (3.7-5.3) 06/25/18 19:15 Globulin 2.8 gm/dL 06/25/18 19:15 Albumin/Globulin Ratio 1.6 (1.0-1.8) 06/25/18 19:15 Triglycerides 41 mg/dL (<150) 06/25/18 19:15 Cholesterol 209 mg/dL (<200) H 06/25/18 19:15 LDL Cholesterol Direct 80 mg/dL (75-193) 06/25/18 19:15 HDL Cholesterol 101 mg/dL (23-92) H 06/25/18 19:15 TSH 1.98 uIU/ml (0.34-5.60) 06/25/18 19:15 Salicylates < 25.0 mg/L (30.0-100.0) L 06/25/18 19:15 Acetaminophen < 10.0 ug/mL (10.0-30.0) L 06/25/18 19:15 Ethyl Alcohol < 10 mg/dL (0-10) 06/25/18 19:15 RPR NONREACTIVE (NONREACTIVE) 06/25/18 19:15 - Physical Exam Vitals and I&O: Vital Signs Temp 96.9 F 07/01/18 06:18 Pulse 65 07/01/18 09:28 Resp 19 07/01/18 06:18 BP 126/60 07/01/18 09:28 Pulse Ox 100 07/01/18 06:18 Intake & Output 06/30/18 07/01/18 07/01/18 18:59 06:59 18:59 Intake Total 300 Balance 300 Intake: Oral 300 Other: # Voids 2 1 # Bowel Movements 0 0 Active Medications: Current Medications Acetaminophen (Tylenol) 650 mg PO Q6H PRN PRN Reason: Pain (Mild) Stop: 08/24/18 22:48 Atenolol (Tenormin) 50 mg PO DAILY [facility] Stop: 08/25/18 08:59 Last Admin: 07/01/18 09:28 Dose: 50 mg Bisacodyl (Dulcolax 10 Mg Supp) 10 mg RC DAILY PRN PRN Reason: Constipation Stop: 08/24/18 22:07 Lisinopril (Zestril) 40 mg PO DAILY [facility]KANTH Stop: 08/25/18 08:59 Last Admin: 07/01/18 09:27 Dose: 40 mg Lorazepam (Ativan) 0.5 mg PO Q6HR PRN; Protocol PRN Reason: Agitation Stop: 08/24/18 23:02 Magnesium Hydroxide (Milk Of Magnesia) 30 ml PO DAILY PRN PRN Reason: Constipation Stop: 08/24/18 22:07 Miscellaneous (Misc Oral Tab) 1 tab PO BID SRIKANTH Stop: 08/30/18 08:59 Last Admin: 07/01/18 09:32 Dose: 1 tab Olanzapine (Zyprexa) 5 mg PO HS SRIKANTH; Protocol Stop: 08/29/18 20:59 Zolpidem Tartrate (Ambien) 5 mg PO HS PRN PRN Reason: Insomnia Stop: 08/24/18 23:05 Last Admin: 06/30/18 20:12 Dose: 5 mg General: demented, bilateral temporal wasting HEENT: NC/AT, PERRLA, EOMI Neck: Supple, No JVD Lungs: CTAB Cardiovascular: RRR, Normal S1, Normal S2, with murmur Abdomen: soft, non-tender, positive bowel sound Extremities: excoriation, contracture Neurological: no change Internal Medicine Assmt/Plan - Assessment Assessment: ASSESSMENT AND PLAN: Anemia, leukopenia, renal insufficiency, elevated cholesterol, gait instability, hypertension, psych disorder, dementia, history of deep venous thrombosis. - Plan Plan: APLAN: Continue oxygen and bronchodilator treatment. Continue on anticoagulation. Continue calcium channel titus. We will monitor renal function closely. Psychiatry to manage the patient for psych issues. We will continue to follow closely. Nutritional Asmnt/Malnutr-PDOC - Dietary Evaluation Malnutrition Findings (Please click <Entered> for more info): Nutritional Asmnt/Malnutrition Start: 06/28/18 09: 40 Text: Status: Complete Freq: Protocol: Document 06/28/18 09:40 BLUE (Rec: 06/28/18 09:46 MMULNELSON BRANDON- FNS1) Nutritional Asmnt/Malnutrition Patient General Information Nutritional Screening Moderate Risk Diagnosis Psychosis, bipolar disorder Pertinent Medical Hx/Surgical Hx Hypertension, psych disorder, dementia Subjective Information Patient was admitted from nursing facility. Patient lying in bed at time of visit. Current Diet Order/ Nutrition Support Mechanical soft Patient / S.O Not Indicated Pertinent Medications dulcolax, MOM Pertinent Labs (06/25) cholesterol 209 Nutritional Hx/Data Height 1.57 m Height (Calculated Centimeters) 157.5 Current Weight (lbs) 59.874 kg Weight (Calculated Kilograms) 59.9 Weight (Calculated Grams) 99193.2 [place] Body Weight 110 % [place] Body Weight 120 Body Mass Index (BMI) 24.1 Recent Weight Change No Weight Status Approriate GI Symptoms GI Symptoms None Last BM 06/27 x 1 Difficult in: None Food Allergies No Cultural/Ethnic/Muslim Belief none indicated Usual diet at home unknown Skin Integrity/Comment: [place] 17, intact, dryness Current %PO Good (75-100%) Estimated Nutritional Goals BEE in Kcals: Using Current wt Calories/Kcals/Kg 25-30 kcal/kg using CBW 60kg Kcals Calculated 9947-7028 kcal/day Protein: Using Current wt Protein g/kgm/kg Protein Calculated ~60gm/day Fluid: ml 4355-6436 ml/day Nutritional Problem 1. Problem Problem No nutrition diagnosis at this time Intervention/Recommendation Comments 1. Continue mechanical soft diet as tolerated by patient. Expected Outcomes/Goals Expected Outcomes/Goals Oral intake >75% of meals, weight stable, nutrition related labs WNl F/U LR 07/05
--- NOTE | 2018-07-02 02:12 | Progress Notes ---
DATE: 06/30/2018 PSYCHOLOGY PROGRESS NOTE DATE OF SERVICE: 06/30/2018 SUBJECTIVE: The patient is seen and is interviewed. Case is discussed with staff. The patient still presents as irritable and guarded. The staff reports the patient is still impulsive. The patient is stating that she believes there is a conspiracy going on and that it involves her. She also believes that people are against her. Paranoid delusions persist. OBJECTIVE: Mood is irritable. Affect is constricted. Thought process includes paranoid ideation with persecutory type of delusions. The patient denied any auditory or visual hallucinations. The patient's behavior has been difficult to redirect on the unit; however, the patient is taking her p.o. medications. ASSESSMENT AND PLAN: The patient continues to present as grossly psychotic. We provided reality orientation, differentiation, and integration. We provided de-escalation and limit setting. We provided motivational enhancement for the patient to become compliant, to stay compliant with all aspects of her care and treatment. We encouraged the patient to demonstrate emotional and self-regulation and to verbalize her concerns versus acting out verbally and behaviorally. We provided coping strategies for chronic severe mental illness as well as for phase of life issues. We will continue the supportive therapy. We will follow up in 2 days to continue the present treatment. Prognosis is poor at this time. JOB# [id number] GENO
--- NOTE | 2018-07-02 03:57 | Progress Notes ---
DATE: 07/01/2018 SUBJECTIVE: Staff was spoken to. The patient is interviewed. Mood is noted to be irritable. Affect is constricted. Coping skills are noted to be very poor. No side effects to the medications are noted. Continues to be very paranoid and has been insisting that she should be discharged back to the facility because someone has been sending her here for no reason. No side effects to the medications are noted. The patient has not been presenting with any threats to harm self or others and hence it is decided to continue the patient with the current medications, such as the olanzapine 5 mg and follow the patient. The patient so far has been able to tolerate. No side effects to medications are noted. ASSESSMENT: The patient's psychosis is stabilizing. PLAN: To continue the patient with the current medications and follow. JOB# [id number]
[2018-07-02] MEDS: ELIQUIS 5 MG PO SCH (08:27)
--- NOTE | 2018-07-02 12:21 | Internal Medicine Prog Note ---
Internal Medicine Subjective - Subjective Patient seen and examined:: with staff, chart reviewed Patient is:: awake, verbal, interactive, in bed Per staff patient has:: no adverse event, no episodes of fall, poor appetite, tolerating meds Internal Medicine Objective - Results Result Diagrams: 06/25/18 19:15 06/25/18 19:15 Recent Labs: Laboratory Last Values WBC 3.1 Th/cmm (4.8-10.8) L 06/25/18 19:15 RBC 4.34 Mil/cmm (3.80-5.20) 06/25/18 19:15 Hgb 11.8 gm/dL (12-16) L 06/25/18 19:15 Hct 35.7 % (41.0-60) L 06/25/18 19:15 MCV 82.3 fl (81-100) 06/25/18 19:15 MCH 27.1 pg (27.0-31.0) 06/25/18 19:15 MCHC Differential 33.0 pg (28.0-36.0) 06/25/18 19:15 RDW 13.5 % (11.5-20.0) 06/25/18 19:15 Plt Count 166 Th/cmm (150-400) 06/25/18 19:15 MPV 7.9 fl 06/25/18 19:15 Add Manual Diff YES 06/25/18 19:15 Neutrophils (Manual) 58 % (40-80) 06/25/18 19:15 Lymphocytes 34 % (20-50) 06/25/18 19:15 Monocytes 8 % (2-10) 06/25/18 19:15 Sodium 140 mEq/L (136-145) 06/25/18 19:15 Potassium 4.2 mEq/L (3.5-5.1) 06/25/18 19:15 Chloride 106 mEq/L (98-107) 06/25/18 19:15 Carbon Dioxide 22.8 mEq/L (21.0-31.0) 06/25/18 19:15 Anion Gap 15.4 (7.0-16.0) 06/25/18 19:15 BUN 41 mg/dL (7-25) H 06/25/18 19:15 Creatinine 1.1 mg/dL (0.6-1.2) 06/25/18 19:15 Est GFR ( Amer) TNP 06/25/18 19:15 Est GFR (Non-Af Amer) TNP 06/25/18 19:15 BUN/Creatinine Ratio 37.3 06/25/18 19:15 Glucose 114 mg/dL (70-105) H 06/25/18 19:15 Whole Bld Lactic Acid 1.15 mmol/L (0.60-1.99) 06/25/18 19:15 Calcium 9.9 mg/dL (8.6-10.3) 06/25/18 19:15 Total Bilirubin 0.4 mg/dL (0.3-1.0) 06/25/18 19:15 AST 17 U/L (13-39) 06/25/18 19:15 ALT 11 U/L (7-52) 06/25/18 19:15 Alkaline Phosphatase 40 U/L (34-104) 06/25/18 19:15 Troponin I < 0.01 ng/mL (0.01-0.05) L 06/25/18 19:15 Total Protein 7.3 gm/dL (6.0-8.3) 06/25/18 19:15 Albumin 4.5 gm/dL (3.7-5.3) 06/25/18 19:15 Globulin 2.8 gm/dL 06/25/18 19:15 Albumin/Globulin Ratio 1.6 (1.0-1.8) 06/25/18 19:15 Triglycerides 41 mg/dL (<150) 06/25/18 19:15 Cholesterol 209 mg/dL (<200) H 06/25/18 19:15 LDL Cholesterol Direct 80 mg/dL (75-193) 06/25/18 19:15 HDL Cholesterol 101 mg/dL (23-92) H 06/25/18 19:15 TSH 1.98 uIU/ml (0.34-5.60) 06/25/18 19:15 Salicylates < 25.0 mg/L (30.0-100.0) L 06/25/18 19:15 Acetaminophen < 10.0 ug/mL (10.0-30.0) L 06/25/18 19:15 Ethyl Alcohol < 10 mg/dL (0-10) 06/25/18 19:15 RPR NONREACTIVE (NONREACTIVE) 06/25/18 19:15 - Physical Exam Vitals and I&O: Vital Signs Temp 97.5 F 07/02/18 06:18 Pulse 63 07/02/18 08:28 Resp 18 07/02/18 06:18 BP 114/68 07/02/18 08:28 Pulse Ox 96 07/02/18 06:18 Intake & Output 07/01/18 07/02/18 07/02/18 18:59 06:59 18:59 Intake Total 120 Balance 120 Intake: Oral 120 Other: # Voids 2 # Bowel Movements 0 Active Medications: Current Medications Acetaminophen (Tylenol) 650 mg PO Q6H PRN PRN Reason: Pain (Mild) Stop: 08/24/18 22:48 Atenolol (Tenormin) 50 mg PO DAILY [facility] Stop: 08/25/18 08:59 Last Admin: 07/02/18 08:27 Dose: 50 mg Bisacodyl (Dulcolax 10 Mg Supp) 10 mg RC DAILY PRN PRN Reason: Constipation Stop: 08/24/18 22:07 Lisinopril (Zestril) 40 mg PO DAILY SRIKANTH Stop: 08/25/18 08:59 Last Admin: 07/02/18 08:28 Dose: Not Given Lorazepam (Ativan) 0.5 mg PO Q6HR PRN; Protocol PRN Reason: Agitation Stop: 08/24/18 23:02 Magnesium Hydroxide (Milk Of Magnesia) 30 ml PO DAILY PRN PRN Reason: Constipation Stop: 08/24/18 22:07 Miscellaneous (Misc Oral Tab) 1 tab PO BID SRIKANTH Stop: 08/30/18 08:59 Last Admin: 07/02/18 08:27 Dose: 1 tab Olanzapine (Zyprexa) 5 mg PO HS SRIKANTH; Protocol Stop: 08/29/18 20:59 Zolpidem Tartrate (Ambien) 5 mg PO HS PRN PRN Reason: Insomnia Stop: 08/24/18 23:05 Last Admin: 06/30/18 20:12 Dose: 5 mg General: demented, bilateral temporal wasting HEENT: NC/AT, PERRLA, EOMI Neck: Supple, No JVD Lungs: CTAB Cardiovascular: RRR, Normal S1, Normal S2, with murmur Abdomen: soft, non-tender, positive bowel sound Extremities: excoriation, contracture Neurological: no change Internal Medicine Assmt/Plan - Assessment Assessment: ASSESSMENT AND PLAN: Anemia, leukopenia, renal insufficiency, elevated cholesterol, gait instability, hypertension, psych disorder, dementia, history of deep venous thrombosis. - Plan Plan: APLAN: Continue oxygen and bronchodilator treatment. Continue on anticoagulation. Continue calcium channel titus. We will monitor renal function closely. Psychiatry to manage the patient for psych issues. We will continue to follow closely. Nutritional Asmnt/Malnutr-PDOC - Dietary Evaluation Malnutrition Findings (Please click <Entered> for more info): Nutritional Asmnt/Malnutrition Start: 06/28/18 09: 40 Text: Status: Complete Freq: Protocol: Document 06/28/18 09:40 MMULNELSON (Rec: 06/28/18 09:46 MMULNELSON BRANDON- [id number]) Nutritional Asmnt/Malnutrition Patient General Information Nutritional Screening Moderate Risk Diagnosis Psychosis, bipolar disorder Pertinent Medical Hx/Surgical Hx Hypertension, psych disorder, dementia Subjective Information Patient was admitted from nursing facility. Patient lying in bed at time of visit. Current Diet Order/ Nutrition Support Mechanical soft Patient / S.O Not Indicated Pertinent Medications dulcolax, MOM Pertinent Labs (06/25) cholesterol 209 Nutritional Hx/Data Height 1.57 m Height (Calculated Centimeters) 157.5 Current Weight (lbs) 59.874 kg Weight (Calculated Kilograms) 59.9 Weight (Calculated Grams) 14250.2 Kings[place] Body Weight 110 % Kings[place] Body Weight 120 Body Mass Index (BMI) 24.1 Recent Weight Change No Weight Status Approriate GI Symptoms GI Symptoms None Last BM 06/27 x 1 Difficult in: None Food Allergies No Cultural/Ethnic/Restorationism Belief none indicated Usual diet at home unknown Skin Integrity/Comment: [place] 17, intact, dryness Current %PO Good (75-100%) Estimated Nutritional Goals BEE in Kcals: Using Current wt Calories/Kcals/Kg 25-30 kcal/kg using CBW 60kg Kcals Calculated 7917-1080 kcal/day Protein: Using Current wt Protein g/kgm/kg Protein Calculated ~60gm/day Fluid: ml 1046-5206 ml/day Nutritional Problem 1. Problem Problem No nutrition diagnosis at this time Intervention/Recommendation Comments 1. Continue mechanical soft diet as tolerated by patient. Expected Outcomes/Goals Expected Outcomes/Goals Oral intake >75% of meals, weight stable, nutrition related labs WNl F/U LR 4/6
--- NOTE | 2018-07-03 04:12 | Progress Notes ---
DATE: 07/02/2018 PSYCHOLOGY PROGRESS NOTE SUBJECTIVE: The patient is seen and is interviewed. Case is discussed with staff. The patient presents as guarded and irritable. The patient is still insisting that someone at her facility, perhaps a staff member, was the one that sent her to the hospital. The patient stated that she does not belong here and should not have been transferred to this unit. The patient was able to verbally contract for safety. OBJECTIVE: Mood is irritable. Affect is constricted. Thought process includes persistent paranoid ideation. The patient denied any hallucinations or delusions. The patient has been compliant with her medications. ASSESSMENT AND PLAN: The patient's psychosis seems to be stabilizing. We provided reality orientation, differentiation, and integration. We encouraged the patient to verbalize her concerns and to demonstrate emotional and self-regulation versus acting out and/or refusing care. We provided coping strategies for phase of life issues as well. No followup is indicated. The staff reports the patient is most likely discharging today. The patient will be followed by a psychologist at her placement. Prognosis is poor. JOB# [id number] GENO
--- NOTE | 2018-07-03 05:40 | Progress Notes ---
DATE: 07/02/2018 SUBJECTIVE: Staff was spoken to. The patient is interviewed. Mood is noted to be anxious. Affect is appropriate. Not suicidal or homicidal. Insight and judgment are noted to be improving. Impulse control is noted to be fair. Coping skills are noted to be fair. The patient is willing to comply with the treatment on an outpatient basis, but the patient is very angry and upset and is stating that there is a conspiracy in sending her to the hospital. ASSESSMENT: The patient is still paranoid, but is not noted to be suicidal or homicidal. PLAN: To discharge the patient today for followup on outpatient basis. JOB# [id number]
--- NOTE | 2018-07-05 23:01 | Discharge Summary ---
DATE OF DISCHARGE: 07/02/2018 IDENTIFYING DATA: The patient is a 73-year-old -[place] woman, resident of a snf facility. Information obtained by directly interviewing the patient and reviewing the admission papers. JUSTIFICATION OF HOSPITALIZATION: The patient is admitted here for acute psychosis. CHIEF COMPLAINT: "They are tricking me and trying to get me out of my house." DIAGNOSES AT THE TIME OF ADMISSION: AXIS I: Psychotic disorder, not otherwise specified. AXIS IB: Dementia and behavioral change secondary to dementia. AXIS II: None. AXIS III: As per Dr. Jaime. HISTORY OF PRESENT ILLNESS: Please refer to 06/26/2018 dictation done by me. The patient's blood work done at the time of the hospitalization has been reviewed by Dr. Jaime. HOSPITAL COURSE AND RESPONSE TO TREATMENT: The patient has been started on the Zyprexa, which was gradually increased to 5 mg. The patient has been fixated on the delusion that she has moved from place to place for no reason and she stated that she needs to go home. No side effects to the medications are noted. The patient started to stabilize and the patient was finally discharged on 07/02/[address] [facility] with recommendation that she is going to be seeking treatment on an outpatient basis by Dr. Roy. MENTAL STATUS EXAMINATION: At the time of discharge, the patient noted to be anxious. Affect is appropriate. Not suicidal or homicidal. Insight and judgment are noted to be improving. Impulse control is noted to be fair. No side effects to the medications are noted. The patient has been able to verbalize the concerns rather than to act out at the time of the discharge. CONDITION AT THE TIME OF DISCHARGE: Noted to be stable. PROGNOSIS: At the time of discharge to be fair with the treatment. JOB# [id number]
== END 2018-07-02 15:30 | DRG 885 ==
LOC: ER 17:58 → GERO 21:05
DX: F29 Unspecified psychosis not due to a substance or known physiological condition (principal); N18.9 Chronic kidney disease, unspecified; F03.91 Unspecified dementia, unspecified severity, with behavioral disturbance; E78.5 Hyperlipidemia, unspecified; F31.9 Bipolar disorder, unspecified; F03.90 Unspecified dementia, unspecified severity, without behavioral disturbance, psychotic disturbance, mood disturbance, and anxiety; D64.9 Anemia, unspecified; D72.819 Decreased white blood cell count, unspecified; R26.9 Unspecified abnormalities of gait and mobility; M62.81 Muscle weakness (generalized); I12.9 Hypertensive chronic kidney disease with stage 1 through stage 4 chronic kidney disease, or unspecified chronic kidney disease; Z86.711 Personal history of pulmonary embolism; Z86.718 Personal history of other venous thrombosis and embolism; Z79.01 Long term (current) use of anticoagulants
CPT/HCPCS: 36415-UA; 80053-TC; 80061-TC; 80320-TC; 80329-TC; 83036-90; 83605; 84443-TC; 84484-TC; 85007-TC; 85025-TC; 86592-TC; 93005; J1200; J1630; J2060